=== PATIENT | female | born 1970 | race Caucasian/White ===

== ENCOUNTER 2019-11-20 12:59 | Outpatient (CLI) | payer BC ==
[2019-11-20] MEDS ORDERED: LEVO112T4 PO (13:28)
[2019-11-20 13:59] LABS: BASOPHILS # (AUTO) 0.03 x10^3/uL (0-0.1); BASOPHILS % (AUTO) 1 % (0-1); EOSINOPHILS # (AUTO) 0.33 x10^3/uL (0-0.4); EOSINOPHILS % (AUTO) 6 % (1-7); LYMPHOCYTES # (AUTO) 1.88 x10^3/uL (1-3.4); LYMPHOCYTES % (AUTO) 35 % (22-44); MD NO; MEAN CORPUSCULAR HEMOGLOBIN 29.1 pg (27.0-34.8); MEAN CORPUSCULAR HGB CONC 33.1 g/dL (32.4-35.8); MEAN CORPUSCULAR VOLUME 87.8 fL (80-100); MEAN PLATELET VOLUME 8.4 fL (7.4-10.4); MONOCYTES # (AUTO) 0.39 x10^3/uL (0.2-0.8); MONOCYTES % (AUTO) 7 % (2-9); NEUTROPHILS # (AUTO) 2.72 x10^3/uL (1.8-6.8); NEUTROPHILS % (AUTO) 51 % (42-75); PLATELET COUNT 264 x10^3/uL (130-400); RED CELL DISTRIBUTION WIDTH 15.1 % (9.6-15.2)
== END 2019-11-20 23:59 | disposition home or self-care (01) ==
LOC: STAR 12:59
PROVIDERS: ATTEND Obstetrics & Gynecology
DX: N39.46 Mixed incontinence (principal)
CPT/HCPCS: 36415; 85025

== ENCOUNTER 2019-11-24 05:55 | Day surgery (SDC) | payer BC ==
[~2019-11-24] VITALS: Ht 177.8 cm; Wt 78.7 kg
[~2019-11-24 05:55] MED LIST: LEVO112T4 PO
[2019-11-24] MEDS ORDERED: LACTATED RINGERS 1,000 ML IV SCH (06:22)
[2019-11-24 06:27] VITALS: BP 137/95
[2019-11-24] MEDS ORDERED: ACETAMINOPHEN 500 MG TABLET PO ONE (06:30)
[2019-11-24 06:50] LABS: HCG UR SG 1.021 (1.003-1.030)
[2019-11-24] MEDS ORDERED: BUPIVACAINE/PF 0.25% ONE (07:12)
[2019-11-24] MEDS ORDERED: SILVER NITRATE STICK TP ONE (07:13)
[2019-11-24] MEDS ORDERED: EPINEPHRINE 1 MG/ML, 1ML ONE (07:13)
[2019-11-24] MEDS ORDERED: FENTANYL PF 250 MCG/5ML ONE (07:22)
[2019-11-24] MEDS ORDERED: MIDAZOLAM 1 MG/ML, 2ML ONE (07:22)
[2019-11-24] MEDS ORDERED: HALOPERIDOL 5 MG/ML IV PRN (07:30)
[2019-11-24] MEDS ORDERED: LABETALOL 5MG/ML, 20ML IV PRN (07:30)
[2019-11-24] MEDS ORDERED: PROMETHAZINE 25 MG/ML, 1ML IV PRN (07:30)
[2019-11-24] MEDS ORDERED: HYDROmorphone 2 MG/ML, 1ML IVPush PRN (07:30)
[2019-11-24] MEDS ORDERED: FENTANYL PF 100 MCG/2ML IV PRN (07:30)
[2019-11-24] MEDS ORDERED: MEPERIDINE/PF 25MG/ML,1ML IVPush PRN (07:30)
[2019-11-24] MEDS ORDERED: OXYcodone 5 MG/5 ML ORAL.SOL UDC PO PRN (07:30)
[2019-11-24] MEDS ORDERED: hydrALAzine 20 MG/ML, 1ML IV PRN (07:30)
[2019-11-24] MEDS ORDERED: CEFAZOLIN 1,000 MG ONE (08:09)
[2019-11-24] MEDS ORDERED: ONDANSETRON 2MG/ML, 2ML ONE (08:09)
[2019-11-24] MEDS ORDERED: PROPOFOL 10 MG/ML, 20ML ONE (08:09)
[2019-11-24] MEDS ORDERED: DEXAMETHASONE 4 MG/ML, 1ML ONE (08:09)
== END 2019-11-24 10:50 | disposition home or self-care (01) ==
LOC: OUT 05:55
PROVIDERS: ATTEND Obstetrics & Gynecology
DX: N95.0 Postmenopausal bleeding (principal); D25.0 Submucous leiomyoma of uterus; N72 Inflammatory disease of cervix uteri; N85.8 Other specified noninflammatory disorders of uterus; E89.0 Postprocedural hypothyroidism; Z79.890 Hormone replacement therapy; Z79.899 Other long term (current) drug therapy; Z85.850 Personal history of malignant neoplasm of thyroid; Z98.890 Other specified postprocedural states; Z82.3 Family history of stroke; Z83.2 Family history of diseases of the blood and blood-forming organs and certain disorders involving the immune mechanism
CPT/HCPCS: 58561; 81025; 88305; J0171; J0690; J1100; J2250; J2405; J2704; J3010; J3490; J7120